=== PATIENT | male | born 1970 | race Caucasian/White ===

== ENCOUNTER → 2017-02-07 | Outpatient (CLI) | payer BC ==
[2017-02-07 20:09] LABS: ALT 67 U/L (21-72); AST 30 U/L (17-59); Alkaline Phosphatase 48 U/L (38-126); Anion Gap 12 mmol/L; Blood Urea Nitrogen 15 mg/dL (9-20); Carbon Dioxide 25 mmol/L (22-30); Chloride 101 mmol/L (98-107); Cholesterol 196 mg/dL (<200); Glucose 114 mg/dL (74-99); HDL Cholesterol 49 mg/dL (40-60); Non-African American GFR(MDRD) >60 (>60 ml/min/1.73 sqM); Sodium 138 mmol/L (137-145); Total Bilirubin 0.8 mg/dL (0.2-1.3); Total Protein 7.3 g/dL (6.3-8.2); Triglycerides 355 mg/dL (<150)
[2017-02-07 21:19] LABS: Hemoglobin A1C 6.6 % (4.2-6.1)
== END | disposition home or self-care (01) ==
LOC: MMGSC 16:24
PROVIDERS: ATTEND Family Medicine
DX: E11.9 Type 2 diabetes mellitus without complications (principal); I10 Essential (primary) hypertension
CPT/HCPCS: 36415; 80053; 80061; 83036

== ENCOUNTER 2018-12-25 12:19 | Emergency (ER) | payer BC ==
[2018-12-25 12:27] VITALS: BP 137/88; PULSE 82; RESP 16; TEMP 98.9
--- NOTE | 2018-12-25 12:48 | ED ---
Chest Pain HPI - General Chief Complaint: Chest Pain Stated Complaint: chest pain Time Seen by Provider: 12/25/18 12:31 Source: patient Mode of arrival: ambulatory Limitations: no limitations - History of Present Illness Initial Comments: 48-year-old male past history of diabetes hypertension previous myocardial infarction with 2 stents placed in 2014. Presents today for chief complaint of on and off chest pain since Tuesday. Patient states he is at work on Tuesday sitting down when he felt pain service chest he states is sharp and stabbing, pt states it last a few seconds, then goes away on and off throughout day. Denies pattern. She states around 430AM, it is similar in characteristic sharp he states it radiates towards his neck and his shoulders. He states at times it feels that her pressure coming and going. Patient denies any dyspnea on exertion, shortness of breath at rest leg swelling fever chills nausea vomiting abdominal pain. Patient states it's stabbing sharp 7/10 when experiencing pain. He states the pain was more persistent today, he states he wanted an EKG presents emergency department for evaluation. Patient denies back pain, numbness tingling headache dizziness. Pt states he takes aspirin daily. Pt states he quit smoking in 2007, pt states that he has a family history of CAD/GA. Remaining ROS (-). Upon arrival pt appears nontoxic. - Related Data Home Medications Medication Instructions Recorded Confirmed Aspirin EC [Ecotrin Low Dose] 81 mg PO DAILY 12/25/18 12/25/18 Cyclobenzaprine [Flexeril] 10 mg PO DAILY PRN 12/25/18 12/25/18 Ertugliflozin Pidolate [Steglatro] 15 mg PO DAILY 12/25/18 12/25/18 Furosemide [Lasix] 20 mg PO DAILY PRN 12/25/18 12/25/18 Ibuprofen [Motrin] 800 mg PO DAILY PRN 12/25/18 12/25/18 Insulin Degludec [Tresiba] 30 units SQ DAILY 12/25/18 12/25/18 Levothyroxine Sodium [Synthroid] 137 mcg PO DAILY 12/25/18 12/25/18 Lisinopril-Hctz 20-12.5 mg 1 tab PO DAILY 12/25/18 12/25/18 [Zestoretic 20-12.5] Metoprolol Succinate [Toprol Xl] 100 mg PO DAILY 12/25/18 12/25/18 [place]-3 Fatty Acids/Fish Oil [Fish 1 cap PO BID 12/25/18 12/25/18 Oil 1,000 mg Softgel] Potassium Chloride ER [K-Dur 20] 20 meq PO DAILY PRN 12/25/18 12/25/18 Rosuvastatin [Crestor] 10 mg PO DAILY 12/25/18 12/25/18 amLODIPine [Norvasc] 5 mg PO DAILY 12/25/18 12/25/18 metFORMIN HCL 1,000 mg PO BID 12/25/18 12/25/18 Allergies Allergy/AdvReac Type Severity Reaction Status Date / Time No Known Allergies Allergy Verified 12/25/18 14:20 Review of Systems ROS Statement: Those systems with pertinent positive or pertinent negative responses have been documented in the HPI. ROS Other: All systems not noted in ROS Statement are negative. Past Medical History Past Medical History: Diabetes Mellitus, Myocardial Infarction (GA) Additional Past Medical History / Comment(s): GA-2004 History of Any Multi-Drug Resistant Organisms: None Reported Past Surgical History: Heart Catheterization With Stent Past Psychological History: No Psychological Hx Reported Smoking Status: Never smoker Past Alcohol Use History: Occasional Past Drug Use History: None Reported General Exam - General Exam Comments Initial Comments: General: The patient is awake and alert, in no distress, and does not appear acutely ill. Eye: +3 mm pupils are equal, round and reactive to light, extra-ocular movements are intact. No nystagmus. There is normal conjunctiva bilaterally. No signs of icterus. Ears, nose, mouth and throat: There are moist mucous membranes and no oral lesions. Neck: The neck is supple, there is no tenderness or JVD. Cardiovascular: There is a regular rate and rhythm. No murmur, rub or gallop is appreciated. Respiratory: Lungs are clear to auscultation, respirations are non-labored, breath sounds are equal. No wheezes, stridor, rales, or rhonchi. Gastrointestinal: Soft, non-distended, non-tender abdomen without masses or organomegaly noted. There is no rebound or guarding present. No pulsatile masses. Bowel sounds are unremarkable. Musculoskeletal: Normal ROM, no tenderness. Strength 5/5. Sensation intact. Radial pulses equal bilaterally 2+. Neurological: A&O x 3. CN II-XII intact, There are no obvious motor or sensory deficits. Coordination appears grossly intact. Speech is normal. Skin: Skin is warm and dry and no rashes or lesions are noted. No LE edema. Psychiatric: Cooperative, appropriate mood & affect, normal judgment. Limitations: no limitations Course Vital Signs 12/25/18 12:25 Temperature 98.9 F Pulse Rate 82 Respiratory 16 Rate Blood Pressure 137/88 O2 Sat by Pulse 98 Oximetry Chest Pain MDM - MDM 48-year-old male presenting for chest pain. Patient has significant risk factors including diabetes high blood pressure and previous stent placement. Patient stated he had chest pain Tuesday. Today he states it was on and off no particular pattern, severe sharp stabbing rating towards shoulders and neck. P atient denies syncope presyncope. Dizziness. Patient denies any trauma to head or neck. Initial troponin negative. EKG no ST elevation or depression. Nonspecific T-wave. CT imaging was obtained given his patient history concerning for possible aortic dissection. CT negative for dissection, there was noted thoracic ectasia. Pt denies fever, cough, infectious symptoms. I discussed this finding with patient. I recommended patient come in for serial EKGs as well as troponin. Immediately placed on telemetry. I discussed the concern for possible adverse cardiac event. Patient states he does not want to stay he states he has to work. I discussed the importance of serial troponins. And cardiac evaluation including stress testing. Patient continues to refuse stating he would rather take the risk than miss work, even if the outcome could be . I discussed case with attending provider Dr. Esparza at this time we recommend admission. Pt leaving AMA, states "give me the paperwork, I just want to leave". Disposition Clinical Impression: Chest pain Disposition: Left Against Medical Advice Condition: Undetermined Is patient prescribed a controlled substance at d/c from ED?: No Referrals: Alana Jensen MD [Primary Care Provider] - 1-2 days Time of Disposition: 14:47
[2018-12-25 13:41] LABS: Basophils % (A) 1 %; Eosinophils # (A) 0.2 k/uL (0-0.7); Eosinophils % (A) 5 %; HCT 44.8 % (39.0-53.0); HGB 15.6 gm/dL (13.0-17.5); Lymphocytes # (A) 1.7 k/uL (1.0-4.8); Lymphocytes % (A) 34 %; MCH 31.8 pg (25.0-35.0); MCHC 34.7 g/dL (31.0-37.0); MCV 91.6 fL (80.0-100.0); Mean Platelet Volume 6.8; Monocytes # (A) 0.3 k/uL (0-1.0); Monocytes % (A) 6 %; Neutrophils # (A) 2.8 k/uL (1.3-7.7); Neutrophils % (A) 54 %; Platelet Count 179 k/uL (150-450); RBC 4.89 m/uL (4.30-5.90); RDW 13.6 % (11.5-15.5); WBC 5.1 k/uL (3.8-10.6)
[2018-12-25 13:49] LABS: ALT 45 U/L (21-72); AST 26 U/L (17-59); Albumin 4.7 g/dL (3.5-5.0); Alkaline Phosphatase 47 U/L (38-126); Anion Gap 10 mmol/L; Blood Urea Nitrogen 19 mg/dL (9-20); Calcium 9.7 mg/dL (8.4-10.2); Carbon Dioxide 23 mmol/L (22-30); Chloride 103 mmol/L (98-107); Glucose 110 mg/dL (74-99); Magnesium 1.9 mg/dL (1.6-2.3); Potassium 3.7 mmol/L (3.5-5.1); Sodium 136 mmol/L (137-145); Total Bilirubin 0.7 mg/dL (0.2-1.3); Total Protein 6.9 g/dL (6.3-8.2)
[2018-12-25 13:54] LABS: Partial Thromboplastin Time 23.9 sec (22.0-30.0); Prothrombin Time 10.4 sec (9.0-12.0)
--- NOTE | 2018-12-25 14:23 | CT ---
EXAMINATION TYPE: CT angio thor/abd pel aorta DATE OF EXAM: 12/25/2018 COMPARISON: None HISTORY: Stabbing chest pains CT DLP: 1542.3 mGycm CONTRAST: CTA thoracic and abdominal aorta with 3-D reconstruction is performed and without and with IV Contras t, patient injected with 100 mL of Isovue 370. Contrast CTA of the thoracic and abdominal aorta was performed from the lung apex through the base of the pelvis. 3-D reconstruction imaging obtained at a separate workstation. CT Chest: THORACIC AORTA: There is no evidence for aneurysm. Ectasia ascending thoracic aortic aneurysm measu ring 3.8 cm AP dimension. No dissection or mediastinal hematoma. Mild atheromatous changes are seen. LUNGS: The lungs are clear and free of infiltrate or atelectasis. No pulmonary nodule or mass is det ected. No pleural effusion or CT evidence of interstitial lung disease. MEDIASTINUM: The heart is not enlarged. No evidence for mediastinal mass or adenopathy. HILAR STRUCTURES: No evidence for mass. No hilar adenopathy is appreciated. OTHER: No significant abnormality. CONTRAST CT ABDOMEN AND PELVIS ABDOMINAL AORTA: No evidence for abdominal aortic aneurysm. No dissection. Iliac vessels are symmet celio and patent. LIVER/GB- No significant abnormality is seen. PANCREAS- No significant abnormality is seen. SPLEEN- No significant abnormality is seen. ADRENALS- No significant abnormality is seen. KIDNEYS/BLADDER- No significant abnormality is seen. BOWEL- No Significant abnormality GENITAL ORGANS: No gross abnormality seen. LYMPH NODES- No greater than 1cm abdominal or pelvic lymph nodes areappreciated. OSSEOUS STRUCTURES- No significant abnormality is seen. OTHER- No significant abnormality is seen. IMPRESSION- 1. No evidence for aortic aneurysm. Ectasia of the ascending thoracic aorta. No evidence for dissecti on or para-aortic hematoma.
== END 2018-12-25 15:03 | disposition left against medical advice (07) ==
LOC: EC 12:19
DX: R07.9 Chest pain, unspecified (principal); E11.9 Type 2 diabetes mellitus without complications; I10 Essential (primary) hypertension; I25.2 Old myocardial infarction; Z87.891 Personal history of nicotine dependence; Z95.5 Presence of coronary angioplasty implant and graft; Z82.49 Family history of ischemic heart disease and other diseases of the circulatory system; Z79.82 Long term (current) use of aspirin; Z79.84 Long term (current) use of oral hypoglycemic drugs; Z79.890 Hormone replacement therapy; Z79.899 Other long term (current) drug therapy
CPT/HCPCS: 36415; 93005; 80053; 83735; 84484; 85025; 85610; 85730; 71275; 74174; 99285; Q9967

== ENCOUNTER → 2019-03-06 | Outpatient (CLI) | payer BC ==
[2019-03-06 16:42] LABS: African American GFR (CKD) 90.9 (60.0-200.0); Albumin 4.7 g/dL (3.80-4.90); Albumin/Globulin Ratio 2.61 (1.60-3.17); Anion Gap 11.6 mmol/L (4.00-12.00); BUN/Creat Ratio 17.27 Ratio (12.00-20.00); Calcium 9.8 mg/dL (8.7-10.3); Carbon Dioxide 26.4 mmol/L (21.6-31.8); Globulin 1.8 g/dL (1.6-3.3); LDL Cholesterol,Calculated 82.8 mg/dL (0.0-131.0); Potassium 3.7 mmol/L (3.5-5.5); Total Bilirubin 0.4 mg/dL (0.3-1.2); Total Protein 6.5 g/dL (6.2-8.2); VLDL Calculation 28.2 mg/dL (5.00-40.00)
[2019-03-06 16:50] LABS: T4, Free (Free Thyroxine) 1.5 ng/dL (0.80-1.80)
[2019-03-06 18:57] LABS: Hemoglobin A1C 6.2 % (4.0-6.0)
== END | disposition home or self-care (01) ==
LOC: LABWHC1 10:23
PROVIDERS: ATTEND Family Medicine
DX: E78.5 Hyperlipidemia, unspecified (principal); E03.9 Hypothyroidism, unspecified; E11.65 Type 2 diabetes mellitus with hyperglycemia; I10 Essential (primary) hypertension
CPT/HCPCS: 36415; 80053; 80061; 83036; 84439; 84443